=== PATIENT | female | born 1985 | race Caucasian/White ===

== ENCOUNTER 2023-09-08 11:08 | Emergency (ER) | payer OTHER ==
[~2023-09-08] VITALS: Ht 157.5 cm; Wt 61.0 kg
[2023-09-08] MEDS ORDERED: HYDR12.55 PO (11:18)
[2023-09-08] MEDS ORDERED: AMLO1TAB25 PO (11:18)
[2023-09-08 12:54] LABS: BASO % 0.2 % (0.0-1.0); EOS % 0.2 % (0.0-3.0); HEMATOCRIT 44.3 % (36.0-47.0); HEMOGLOBIN 15.4 g/dl (12.0-15.5); LYMPH # 2.2 10^3/uL (1.5-5.0); LYMPH % 19.5 % (24.0-44.0); MEAN CORPUSCULAR HEMOGLOBIN 32.1 pg (27.0-33.0); MEAN CORPUSCULAR HGB CONC 34.8 g/dl (32.0-36.5); MEAN CORPUSCULAR VOLUME 92.3 fl (80.0-96.0); MONO # 0.6 10^3/uL (0.0-0.8); NEUTROPHILS # 8.6 10^3/uL (1.5-8.5); NEUTROPHILS % 74.9 % (36.0-66.0); PLATELET COUNT, AUTOMATED 182 10^3/uL (150-450); WHITE BLOOD COUNT 11.5 10^3/uL (4.0-10.0)
[2023-09-08 13:16] LABS: LIPASE 47 U/L (12-53)
[2023-09-08 13:18] LABS: ALBUMIN 3.8 G/DL (3.2-5.2); ALKALINE PHOSPHATASE 69 U/L (46-116); ALT/SGPT 30 U/L (7.0-40); AST/SGOT 22 U/L (<34); BILIRUBIN,DIRECT < 0.1 MG/DL (<0.4); BILIRUBIN,TOTAL 0.3 MG/DL (0.3-1.2); BLOOD UREA NITROGEN 9 MG/DL (9-23); CALCIUM LEVEL 9.3 MG/DL (8.5-10.1); CARBON DIOXIDE LEVEL 25 MMOL/L (20-31); CHLORIDE LEVEL 106 MMOL/L (98-107); CREATININE FOR GFR 0.57 MG/DL (0.55-1.30); GLOMERULAR FILTRATION RATE > 60.0 (>60); GLUCOSE, FASTING 103 MG/DL (60-100); POTASSIUM SERUM 4.1 MMOL/L (3.5-5.1); SODIUM LEVEL 138 MMOL/L (136-145); TOTAL PROTEIN 7.8 G/DL (5.7-8.2)
[2023-09-08] MEDS: TAMSULOSIN 0.4 MG CAP PO ONE (15:59)
[2023-09-08] MEDS: ONDANSETRON 4MG 2ML VIAL IV ONE (16:22)
[2023-09-08] MEDS: NS 1,000 ML IV ONE (16:23)
[2023-09-08] MEDS: KETOROLAC 30 MG/ML 1ML VIAL IV ONE (16:23)
[2023-09-08] MEDS: MORPHINE 4 MG/ML 1ML VIAL IV ONE (17:29)
[2023-09-08] MEDS ORDERED: KETO10TAB PO (18:22)
[2023-09-08] MEDS ORDERED: TRAM50TA2 PO (18:22)
[2023-09-08] MEDS ORDERED: FLOM0.4C39 PO (18:22)
[2023-09-08 18:43] VITALS: BP 137/85; TEMP 97.7; O2SAT 99
== END 2023-09-08 18:45 | disposition home or self-care (01) ==
LOC: M ED 11:08
DX: N20.1 Calculus of ureter (principal); I10 Essential (primary) hypertension; Z87.442 Personal history of urinary calculi; Z79.83 Long term (current) use of bisphosphonates; Z79.811 Long term (current) use of aromatase inhibitors; Z79.891 Long term (current) use of opiate analgesic; Z79.899 Other long term (current) drug therapy
CPT/HCPCS: 74018; 80048; 80076; 81001; 83690; 85025; 96361; 96374; 96375; 99284; J1885; J2405

== ENCOUNTER 2024-06-21 09:17 | Day surgery (SDC) | payer OTHER ==
[~2024-06-21] VITALS: Ht 157.5 cm; Wt 63.0 kg
[~2024-06-21 09:17] MED LIST: AMLO1TAB25 PO; FLOM0.4C39 PO; HYDR12.55 PO; HYDR50TA70 PO; KETO10TAB PO; KETOROLAC 60MG 2ML VIAL As Ordered ONE; LIDOCAINE 2% 100MG/5ML SDV (FOR ANES.) As Ordered ONE; MIDAZOLAM INJ 2MG/2ML VIAL As Ordered ONE; ONDANSETRON 4MG 2ML VIAL As Ordered ONE; TRAM50TA2 PO; fentaNYL 100 MCG/2 ML INJECTION As Ordered ONE; propofoL 200 MG/20 ML VIAL As Ordered ONE
[2024-06-21] MEDS ORDERED: NS (Normal Saline) 0.9% 1,000 ML IV SCH ×2 (10:00→11:55)
[2024-06-21] MEDS ORDERED: BACITRACIN OINTMENT 30GM TUBE As Ordered ONE (10:45)
[2024-06-21] MEDS ORDERED: dexmedeTOMIDine (4MCG/ML)200MCG/50ML BTL (PRECEDEX) As Ordered ONE (10:53)
[2024-06-21] MEDS ORDERED: HYDROMORPHONE HCL 0.5 MG/ 0.5 ML SYRINGE IV PRN (11:55)
[2024-06-21] MEDS ORDERED: fentaNYL 100 MCG/2 ML INJECTION IV PRN (11:55)
[2024-06-21] MEDS ORDERED: ONDANSETRON 4MG 2ML VIAL IV PRN (11:55)
[2024-06-21] MEDS: oxyCODONE 5MG TAB PO PRN ×2 (12:30→14:13)
[2024-06-21 13:41] VITALS: BP 109/67; TEMP 97.1; O2SAT 97
== END 2024-06-21 14:26 | disposition home or self-care (01) ==
LOC: M SDC 09:17
PROVIDERS: ATTEND Orthopaedic Surgery Hand Surgery
DX: G56.02 Carpal tunnel syndrome, left upper limb (principal); I10 Essential (primary) hypertension; Z79.899 Other long term (current) drug therapy
CPT/HCPCS: 29848; 81025; J0665; J1100; J1885; J2250; J2405; J3010